=== PATIENT | female | born 2000 | race Caucasian/White ===

== ENCOUNTER 2020-06-06 13:24 | Inpatient (IN) | payer OTHER ==
[~2020-06-06] VITALS: Ht 157.5 cm; Wt 61.8 kg
[2020-06-06] MEDS ORDERED: HYDR-3363 PO (13:34)
[2020-06-06] MEDS ORDERED: ASEN5TA SL (13:34)
[2020-06-06] MEDS ORDERED: CLON1TAB17 PO (13:35)
[2020-06-06 14:11] LABS: HEMATOCRIT 39.4 % (36.0-47.0); HEMOGLOBIN 13.5 g/dl (12.0-15.5); MEAN CORPUSCULAR HEMOGLOBIN 31.8 pg (27.0-33.0); MEAN CORPUSCULAR HGB CONC 34.3 g/dl (32.0-36.5); MEAN CORPUSCULAR VOLUME 92.7 fl (80.0-96.0); PLATELET COUNT, AUTOMATED 343 10^3/uL (150-450); RED BLOOD COUNT 4.25 10^6/uL (4.00-5.40); WHITE BLOOD COUNT 7.4 10^3/uL (4.0-10.0)
[2020-06-06 14:30] LABS: AMPHETAMINES LEVEL URINE NEGATIVE (NEGATIVE); BARBITURATES URINE NEGATIVE (NEGATIVE); BENZODIAZEPINES URINE NEGATIVE (NEGATIVE); CANNABINOIDS URINE NEGATIVE (NEGATIVE); COCAINE METABOLITE URINE NEGATIVE (NEGATIVE); METHADONE URINE NEGATIVE (NEGATIVE); OPIATES URINE NEGATIVE (NEGATIVE); PHENCYCLIDINE URINE NEGATIVE (NEGATIVE)
[2020-06-06 14:35] LABS: HCG, SERUM QUALITATIVE NEGATIVE (NEGATIVE)
[2020-06-06 14:42] LABS: ACETAMINOPHEN LEVEL < 2.0 UG/ML (10.0-30.0); ALBUMIN 3.8 GM/DL (3.2-5.2); ALT/SGPT 35 U/L (12-78); BILIRUBIN,DIRECT 0.1 MG/DL (0.0-0.2); BILIRUBIN,TOTAL 0.3 MG/DL (0.2-1.0); BLOOD UREA NITROGEN 12 MG/DL (7-18); CALCIUM LEVEL 9.5 MG/DL (8.5-10.1); CARBON DIOXIDE LEVEL 27 MEQ/L (21-32); CHLORIDE LEVEL 105 MEQ/L (98-107); CREATININE FOR GFR 0.81 MG/DL (0.55-1.30); ETHYL ALCOHOL (ETHANOL) < 0.003 % (0.000-0.010); GLUCOSE, FASTING 98 MG/DL (70-100); POTASSIUM SERUM 3.8 MEQ/L (3.5-5.1); SALICYLATE LEVEL < 1.7 MG/DL (5.0-30.0); SODIUM LEVEL 137 MEQ/L (136-145); TOTAL PROTEIN 7.6 GM/DL (6.4-8.2)
[2020-06-06] MEDS ORDERED: ALPRAZolam 0.5 MG TAB PO ONE ×2 (17:45→21:45)
[2020-06-06] MEDS ORDERED: HYDR1CAP25 PO (18:47)
[2020-06-06] MEDS ORDERED: CLON1TAB8 PO (18:47)
[2020-06-06] MEDS ORDERED: JUNE1.5T PO (18:47)
[2020-06-06] MEDS ORDERED: MAALOX 30 ML SUSP *UDC PO PRN (19:00)
[2020-06-06] MEDS ORDERED: hydrOXYzine 25 MG TAB PO PRN (19:00)
[2020-06-06] MEDS ORDERED: traZODone 50 MG TAB PO PRN (19:00)
[2020-06-06] MEDS ORDERED: ACETAMINOPHEN TAB 650MG DOSE (2X325MG) PO PRN (19:00)
[2020-06-06] MEDS ORDERED: MOM 30ML SUSPENSION UDC PO PRN (19:00)
[2020-06-06] MEDS: clonazePAM 1 MG TAB PO SCH (21:00)
[2020-06-06] MEDS: OLANZapine ORAL DISINTEGRATING TAB 5MG PO PRN (22:43)
[2020-06-06 22:51] VITALS: BP 118/67
[2020-06-06] MEDS ORDERED: NICOTINE 21MG/24HR 1 EA TRANSDERMAL TD PRN (23:00)
[2020-06-07 06:14] VITALS: BP 114/63
[2020-06-07] MEDS: clonazePAM 1 MG TAB PO SCH ×2 (08:33→20:04)
[2020-06-07] MEDS ORDERED: INFLUENZA QUADRIVALENT PF VACCINE 0.5ML SYRINGE IM ONE (09:00)
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
[2020-06-07] MEDS ORDERED: hydrOXYzine 50 MG TAB PO PRN (11:45)
[2020-06-07] MEDS: OLANZapine ORAL DISINTEGRATING TAB 5MG PO PRN ×2 (12:49→18:18)
--- NOTE | 2020-06-07 13:40 | HPEPDOC ---
[facility] Medical History & Physical Date of Admission Jun 07, 2020 Date of Service: Jun 07, 2020 History and Physical Chief complaint: Presented to the hospital with suicidal ideation Hospital service was called for medical screening evaluation History of present illness: Patient is a 19-year-old female with a PMHx of Anxiety / Depression / Bipolar who presented to the ER with suicidal ideation. Patient was admitted to inpatient mental health unit under the care of psychiatry. Hospitalist service was called for medical screening evaluation. Currently, patient reports a mild headache. Denies any nausea, vomiting, chest pain, or change in her baseline shortness of breath. She does report a mild nonproductive cough. Denies any abdominal pain, burning with urination or diarrhea. Patient reports mild constipation. Patient denies any changes in her appetite, but does report some weight gain. Past Medical History: Anxiety / Depression / Bipolar Past Surgical History: Denies any prior surgeries Allergies: See below Medications: See below Family History: - Mother and father with a history of high blood pressure Social History: - Denies the use of illicit drugs; patient reports that she uses a Vape for the last 3 months; patient reports social alcohol use. Reports that she drinks a six pack of beer daily - Denies recent travel or sick contacts - Lives with - Occupation; reports that she works at a [employer] Review of Systems: 10 point review of systems complete, all negative otherwise stated in HPI Physical exam: - Vitals: BP [114/63], HR [65], RR [16], Sat [98%RA], Temp [96.8F] - General: Lying in bed, Speaking in full sentences, AAOx3 - HEENT: NC, AT, PERRLA - CVS: RRR, +S1S2 - Lungs: Fair air entry bilaterally, No appreciable wheezing / rales / rhonchi - Abdomen: Soft, Non-distended, Non-tender - Extremities: No lower extremity edema, No calf tenderness - Neuro: No focal motor or sensory deficit - Skin: No visible rashes Assessment and Plan: Suicidal ideation - Patients past medical history of anxiety, depression and bipolar disorder - Admitted to the inpatient mental health unit under the care of psychiatry - Currently being managed by psychiatry No significant past medical history DVT prophylaxis - Will continue with early ambulation Plan Checker was present throughout the duration of this history and physical examination Thank you for this consultation; hospitalist service will sign off. Please re- consult as needed Vital Signs Vital Signs Date Time Temp Pulse Resp B/P (MAP) Pulse Ox O2 Delivery O2 Flow Rate FiO2 06/07/20 06:14 98.8 65 16 114/63 (80) 06/06/20 22:51 98 Room Air Laboratory Data Labs 24H Laboratory Tests 2 06/06/20 13:49: Nucleated Red Blood Cells % (auto) 0.0, Anion Gap 5L, Calcium Level 9.5, Total Bilirubin 0.3, Direct Bilirubin 0.1, Aspartate Amino Transf (AST/SGOT) 25, Alanine Aminotransferase (ALT/SGPT) 35, Alkaline Phosphatase 88, Total Protein 7.6, Albumin 3.8, Albumin/Globulin Ratio 1.0L, Thyroid Stimulating Hormone (TSH) 1.360, Human Chorionic Gonadotropin, Qual NEGATIVE, Salicylates Level < 1.7L, Urine Opiates Screen NEGATIVE, Urine Methadone Screen NEGATIVE, Acetaminophen Level < 2.0L, Urine Barbiturates Screen NEGATIVE, Urine Phencyclidine Screen NEGATIVE, Urine Amphetamines Screen NEGATIVE, Urine Benzodiazepines Screen NEGATIVE, Urine Cocaine Metabolite Screen NEGATIVE, Urine Cannabinoids Screen NEGATIVE, Ethyl Alcohol Level < 0.003 CBC/BMP Laboratory Tests 06/06/20 13:49 Home Medications Scheduled Asenapine (Saphris) 5 Mg Tab.subl, 5 MG SL QHS Clonazepam (Clonazepam) 1 Mg Tablet, 1 MG PO BID Hydroxyzine Pamoate (Hydroxyzine Pamoate) 25 Mg Capsule, 25 MG PO QHS Norethindrone-E.estradiol-Iron (Junel Fe 1.5 mg-30 Mcg Tablet) 1 Each Tablet, 1 TAB PO DAILY Allergies Coded Allergies: No Known Allergies (Unverified , 06/06/20) HA HORTON MD Jun 07, 2020 13:39
[2020-06-07 16:00] VITALS: BP 119/74
[2020-06-07] MEDS ORDERED: ARIPiprazole 2 MG TAB PO SCH (21:00)
[2020-06-08 06:58] VITALS: BP 98/56
[2020-06-08] MEDS: clonazePAM 1 MG TAB PO SCH (08:08)
--- NOTE | 2020-06-08 09:30 | MHDSPDOC ---
[facility] Discharge Summary Discharge Summary DATE OF ADMISSION: Jun 06, 2020 at 18:49 DATE OF DISCHARGE: Jun 08, 2020 at 11:44 DISCHARGE DIAGNOSES: F31.9 Bipolar disorder, unspecified F10.10 Alcohol abuse, uncomplicated CONSULTANTS INVOLVED:[ None (basic hospitalist screening)] REASON FOR ADMISSION & TREATMENT AND PROGRESS ON THE UNIT : Patient, female, was admitted to inpatient health unit after she reportedly had suicidal thoughts. She had these thoughts after various stressors of moving to local area from [place] with her . Patient reportedly had difficulty finding a provider and had vague symptoms of depression. When she presented, her suicidality rapidly vanished. MEDICATIONS: She was interested in having her Klonopin changed to Xanax. This was declined because it was not appropriate especially given her drinking. Patient was changed from Saphris to Abilify because Saphris is not available in the pharmacy. She was open to trying a new medication because Saphris did not help her. She tolerated medication well and became generally euthymic at 48 hours. She did not meet involuntary criteria for further extension and was sent home. Discussed with patient at length about the use of alcohol and Klonopin is dangerous. She acknowledged this but was not interested in tapering it off. DISCHARGE ASSESSMENT[improved] Legal status considerations: The patient at the time of discharge did not meet criteria for involuntary admission/extension due to having a [normal] mental status exam, [fair] insight into the situation, They are engaged in the discharge process, as well as being friendly and amenable in behavioral control and havent been engaging in any observed concerning behavior or ideation recently. They decline voluntary extension/admission at this time and must be discharged in [place], as Im unable to make a case for holding the patient against their will. They may have historical risk factors of admissions and other interactions with psychiatry however, those are not modifiable from a clinical perspective. The patient will need to be discharged in [place]. MENTAL STATUS EXAMINATION ON DISCHARGE: [General: Well dressed with good hygiene Speech: Spontaneous and fluid Thought processes: Linear and logical Thought content: Future orientated Abstract reasoning, and computation: Intact Description of associations: Intact Description of abnormal or psychotic thoughts:Denies any suicidal or homicidal ideation. Denies any auditory or visual hallucinations. Does not appear to be responding to internal stimuli. Does not appear to be endorsing any bizarre or paranoid ideation. Judgment: fair Insight: fair Orientation: Alert and orientated 3 Recent and remote memory: Intact Attention span and concentration: Intact Fund of knowledge: Adequate Mood: "okay" Affect: Euthymic with a full range] PLAN/FOLLOWUP ARRANGEMENTS: Follow up appointments made (PCP and MH in 5 days of D/C date) and safety plan completed. Safety Planning aspects completed prior to discharge [Medication supplies limited to 7 days with 4 refills to prevent accumulation to OD] [Family contact completed, educated on safe practices, instructed on removal and mitigation of dangerous means] [RN reviewed crisis hotline information and other aspects to empower patient to access care in interim before next appointment.] The amount of time spent in the coordination of care for this patient was approximately 30 minutes. Vital Signs/I&Os Vital Signs Date Time Temp Pulse Resp B/P (MAP) Pulse Ox O2 Delivery O2 Flow Rate FiO2 06/08/20 06:58 98.2 75 15 98/56 (70) 98 Room Air Medications Scheduled Aripiprazole (Abilify) 5 Mg Tablet, 5 MG PO QHS for mood for 7 Days, #7 Clonazepam (Clonazepam) 1 Mg Tablet, 1 MG PO BID, (Reported) Hydroxyzine Pamoate (Hydroxyzine Pamoate) 25 Mg Capsule, 25 MG PO QHS, (Reported) Norethindrone-E.estradiol-Iron (Junel Fe 1.5 mg-30 Mcg Tablet) 1 Each Tablet, 1 TAB PO DAILY, (Reported) Allergies Coded Allergies: No Known Allergies (Unverified , 06/06/20) MARY MILLER DO Jun 08, 2020 09:30
[2020-06-08] MEDS ORDERED: ABIL1TAB11 PO (10:06)
== END 2020-06-08 11:44 | disposition home or self-care (01) | DRG 885 ==
LOC: M ED 13:24 → M ED INP 18:49 → M PSY 21:54
PROVIDERS: ADMIT Psychiatry & Neurology Psychiatry; ATTEND Psychiatry & Neurology Addiction Medicine
DX: F31.9 Bipolar disorder, unspecified (principal); F41.9 Anxiety disorder, unspecified; F10.10 Alcohol abuse, uncomplicated; F17.290 Nicotine dependence, other tobacco product, uncomplicated; Z81.8 Family history of other mental and behavioral disorders; Z79.899 Other long term (current) drug therapy

== ENCOUNTER 2021-02-12 14:30 | Outpatient (CLI) | payer OTHER ==
[~2021-02-12] VITALS: Ht 157.5 cm; Wt 65.4 kg
[~2021-02-12 14:30] MED LIST: ABIL1TAB11 PO; ASEN5TA SL; CLON1TAB17 PO; CLON1TAB8 PO; HYDR-3363 PO; HYDR1CAP25 PO; JUNE1.5T PO
[2021-02-12 14:39] VITALS: BP 110/71
[2021-02-12] MEDS ORDERED: ACET-907 PO (14:49)
[2021-02-12] MEDS ORDERED: MULTTAB20 PO (14:49)
[2021-02-12] MEDS ORDERED: BIOT5TAB3 PO (14:50)
[2021-02-12] MEDS ORDERED: UNIS25TA3 PO (14:50)
[2021-02-12] MEDS ORDERED: diphenhydrAMINE 25MG CAP PO ONE (15:00)
[2021-02-12 15:46] VITALS: BP 88/50
[2021-02-12 15:47] VITALS: BP 99/61
--- NOTE | 2021-02-12 16:03 | IPNPDOC ---
Obstetrical Progress Note Date of Service February 12, 2021 Subjective 20 yo at 28w1d with OSITO of 06 MAY 2021 presents to L&D with complaints of lightheadedness and dizziness. She reports that she felt that she passed out and was able to slide down to the floor. She reports that she hydrates well and during dietary recall, she has a high carbohydrate diet with no protein. She also reports that she has a headache since 1200 today and she took tylenol 1000 mg with no relief. She denies vaginal bleeding, leaking of fluid, contractions, and reports positive movement. Objective Vital Signs Date Time Temp Pulse Resp B/P (MAP) Pulse Ox O2 Delivery O2 Flow Rate FiO2 02/12/21 14:39 98.1 78 16 110/71 (84) Assessment Near syncope Headache Assessment Heart Rate (FHR): 135 Variability: Moderate Accelerations: Present Decelerations: None Tocometer Contractions: No Assessment and Plan Age: 20 : 1 Term: 0 Pre-term: 0 Abortions: 0 Livin EGA at Admission: 28 (+1) Weeks & Days 28w1d Status: Reassuring Additional Comments Discharge to home, certified not in labor Recommended to eat small portions every 2-3 hours with foods higher in protein Recommended to hydrate with 3-4 liters of water per day Recommended to keep all future appointments with [employer] SAL[employer] REPRESENTATIVE FKC and PTL precautions discussed Recommended to return to L&D if symptoms worsen or persist 20 minutes of face to face time spent with the patient for assessment and to discuss plan of care AURORA HUMPHREY CNM February 12, 2021 15:06
== END 2021-02-12 16:05 | disposition home or self-care (01) ==
LOC: M LDO 14:30
PROVIDERS: ATTEND Registered Nurse Maternal Newborn
DX: O26.893 Other specified pregnancy related conditions, third trimester (principal); R42 Dizziness and giddiness; R55 Syncope and collapse; Z3A.28 28 weeks gestation of pregnancy
CPT/HCPCS: G0378; G0463

== ENCOUNTER 2021-02-19 19:46 | Outpatient (CLI) | payer OTHER ==
[~2021-02-19] VITALS: Ht 157.5 cm; Wt 65.0 kg
[~2021-02-19 19:46] MED LIST changes: +ACET-907 PO; +BIOT5TAB3 PO; +MULTTAB20 PO; +UNIS25TA3 PO
[2021-02-19 20:11] VITALS: BP 107/63
[2021-02-19 21:16] VITALS: BP 122/75
--- NOTE | 2021-02-19 21:48 | IPNPDOC ---
Text Note Date of Service The patient was seen on 02/19/21. NOTE 20 yo at 29+1 weeks gestation presented to L&D with the complaint of cramping on and off abdominal and lower pelvic pain since about 1530 this afternoon. She denies any vaginal bleeding or leakage of fluid. She denies any dysuria, fevers/chills, or vomiting. She endorses feeling lots of movement. Chaperoned by L&D RN Vitals - VSS, afebrile, normotensive, non tachycardic General - Sitting up in bed, AAOX3, NAD Abdomen - Gravid uterus appropriate size for gestational age. No fundal tenderness. Cervix - Cl/thick/high to digital exam. Unchanged exam >1 hour later. Extremities - No edema FHR tracing - Cat I and appropriate for gestational age throughout stay. +accels, no decels. Sporadic contractions ultimately resolved on toco. Bedside TVUS - cervical length 3.2cm with no funneling or dynamic changes with valsalva. UA - clean catch, 1.005 SG, +1 ketones, +1 bacteria, all else negative Cervix closed and unchanged after serial exams. Ctx all but resolved on toco. Cervical length >3cm and reassuring on TVUS. Note made of +1 bacteria on UA. Script written for Macrobid for presumed UTI. Will follow up on culture results when they return. Patient given first dose of macrobid in triage and remainder of course ordered at [facility] to be picked up. I offered Stephanie overnight observation in the hospital if it would be make her more comfortable. However, Stephanie desired to return home. Patient to return to care for worsening pain, fevers/chills, bleeding, leakage of fluid, or any other urgent concerns. All questions answered. 60 minutes of patient care DO SAMMY Torres,Jovanni, I+O VS, Jovanni, I+O Vital Signs Date Time Temp Pulse Resp B/P (MAP) Pulse Ox O2 Delivery O2 Flow Rate FiO2 02/19/21 20:11 98.4 86 16 107/63 (78) YADIEL VINSON DO February 19, 2021 21:48
[2021-02-19] MEDS ORDERED: NITROFURANTOIN (MACROBID) 100 MG CAP PO ONE (22:25)
== END 2021-02-19 22:40 | disposition home or self-care (01) ==
LOC: M LDO 19:46
PROVIDERS: ATTEND Obstetrics & Gynecology
DX: O23.43 Unspecified infection of urinary tract in pregnancy, third trimester (principal); O26.893 Other specified pregnancy related conditions, third trimester; Z3A.29 29 weeks gestation of pregnancy; R25.2 Cramp and spasm
CPT/HCPCS: 76815; 81001; G0378; G0463

== ENCOUNTER 2021-04-16 18:31 | Outpatient (CLI) | payer OTHER ==
[~2021-04-16] VITALS: Ht 157.5 cm; Wt 68.1 kg
[2021-04-16 18:47] VITALS: BP 123/72
[2021-04-16 20:40] VITALS: BP 121/63
--- NOTE | 2021-04-16 20:48 | IPNPDOC ---
Text Note Date of Service The patient was seen on 04/16/21. NOTE 20 yo at 37+1 weeks gestation presented to L&D with the complaint of regular, painful contractions. She denies any vaginal bleeding or leakage of fluid. She endorses movement. Chaperoned by L&D RN Vitals - VSS, afebrile, normotensive General - AAOX3, sitting up in bed, NAD Abdomen - Gravid uterus appropriate size for gestational age. No fundal tenderness Cervix - 1/50/-3, posterior. Exam unchanged on repeat >1hr after first exam. FHR tracing - Cat I with moderate variability, +accels, no decels. Ctx noted on toco. Cervix unchanged at 1/50/-3 to serial exams. Likely not in active labor. Reassuring status. Offered pain medication but patient declined. She asked about something to help her sleep and I suggested benadryl. She has some at home. Return to care for bleeding, worsening contractions, leakage of fluid, or decreased movement. All questions answered. 45 minutes of patient care DO SAMMY Torres Fishbone, I+O VS, Jovanni, I+O Vital Signs Date Time Temp Pulse Resp B/P (MAP) Pulse Ox O2 Delivery O2 Flow Rate FiO2 04/16/21 20:39 97.7 04/16/21 18:47 117 123/72 (89) 04/16/21 18:46 18 YADIEL VINSON DO Apr 16, 2021 20:48
== END 2021-04-16 20:44 | disposition home or self-care (01) ==
LOC: M LDO 18:31
PROVIDERS: ATTEND Obstetrics & Gynecology
DX: O47.1 False labor at or after 37 completed weeks of gestation (principal); Z3A.37 37 weeks gestation of pregnancy; Z91.040 Latex allergy status; Z79.899 Other long term (current) drug therapy
CPT/HCPCS: 59025; 81001; G0378; G0463

== ENCOUNTER 2021-05-07 05:25 | Outpatient (CLI) | payer OTHER ==
[~2021-05-07] VITALS: Ht 157.5 cm; Wt 71.9 kg
[2021-05-07 05:40] VITALS: BP 127/78
[2021-05-07] MEDS ORDERED: hydrOXYzine 50 MG TAB PO STA (10:21)
--- NOTE | 2021-05-07 10:23 | IPNPDOC ---
Obstetrical Progress Note Date of Service May 07, 2021 Subjective 20 yo at 40w1d with OSITO of 06 MAY 2021 presents to L&D with complaints of contractions that have gotten progressively worse through the night since 0100 this morning. She reports that she was having contractions starting yesterday at 0800. She reports that she lost her mucous plug in large amounts. She denies leaking of fluid, vaginal bleeding, and reports positive movement. Objective Vital Signs Date Time Temp Pulse Resp B/P (MAP) Pulse Ox O2 Delivery O2 Flow Rate FiO2 05/07/21 05:40 98.4 88 18 127/78 (94) Cervical exam is unchanged from her previous exam after 2 hours. Assessment Heart Rate (FHR): 145 Variability: Moderate Accelerations: Present Decelerations: None Tocometer Contractions: Yes Frequency: irregular Sterile Vaginal Examination Dilation: 1cm (1-2 cm) Effacement (%): 50% Station: -2 Cervical Consistency: Medium Cervical Position: Posterior Postion/Presentation: Cephalic presentation Assessment and Plan Age: 20 : 1 Term: 0 Pre-term: 0 Abortions: 0 Livin Weeks & Days 40w1d Status: Reassuring Group B Streptococcus: Negative Additional Comments Assessment: IUP at 40w1d Threatened labor at term Plan: Discharge to home, certified not in labor Recommended to hydrate well with 3-4 liters of water per day IOL discussed and scheduled on 13 MAY 2021 Labor precautions and FKC discussed Keep all appointments with [facility] CERTIFIED OPHTHALMIC TECHNICIAN Return to L&D if symptoms worsen or persist. AURORA HUMPHREY CNM May 07, 2021 08:21
== END 2021-05-07 10:43 | disposition home or self-care (01) ==
LOC: M LDO 05:25
PROVIDERS: ATTEND Obstetrics & Gynecology
DX: O47.1 False labor at or after 37 completed weeks of gestation (principal); Z3A.41 41 weeks gestation of pregnancy
CPT/HCPCS: 59025; G0378; G0463

== ENCOUNTER 2021-05-09 19:14 | Outpatient (CLI) | payer OTHER ==
[~2021-05-09] VITALS: Ht 157.5 cm; Wt 70.4 kg
--- NOTE | 2021-05-09 22:12 | HPE ---
HISTORY AND PHYSICAL DATE OF ADMISSION: 05/09/2021 HISTORY OF PRESENT ILLNESS: This lady is a 20-year-old 1, para 0, EDC by ultrasound at 10 weeks and 5 days is May 06, 2021. She is at 40 and 3/7 weeks of gestation. Today when she saw her practitioner, she had membranes sweeping. She calls because she thinks her membranes ruptured and she is having contractions. MEDICAL HISTORY/RISK FACTORS: She has anxiety, depression, she is bipolar and she sees behavioral health. She has chronic anemia and uses an asthma inhaler on a p.r.n. basis. PHYSICAL EXAMINATION: Today she does not appear in any acute distress. Symphysis fundus height is 40. Vertex presenting. Category 1 strip on the NST, moderate variability, no decelerations. She does have contractions, but they are intermittently spaced. STERILE SPECULUM EXAMINATION: Cervix is posterior 1 cm. Nitrazine is negative. No ferning. No BV. No yeast. No trichomonas. Digital examination reveals 1 cm, posterior, vertex -3 station. Head is well applied to the cervix. Ultrasound limited abdominally after consenting; vertex presenting, QUINN in three quadrants total of 8.86. limb movements were noted, cardiac activity, spontaneous respirations. Deepest pockets vertical were 3.96. IN SUMMARY: We have a 40 and 3/7 weeks of gestation with uterine irritability secondary to membrane sweeping category 1 strip. Patient has an appointment on Friday for induction of labor at 41 weeks. Patient was discharged undelivered, expressed understanding of the plan of care.
== END 2021-05-09 20:10 | disposition home or self-care (01) ==
LOC: M LDO 19:14
PROVIDERS: ATTEND Obstetrics & Gynecology
DX: O26.893 Other specified pregnancy related conditions, third trimester (principal); N89.8 Other specified noninflammatory disorders of vagina; Z3A.40 40 weeks gestation of pregnancy; O99.343 Other mental disorders complicating pregnancy, third trimester; F41.9 Anxiety disorder, unspecified; F31.9 Bipolar disorder, unspecified; O99.513 Diseases of the respiratory system complicating pregnancy, third trimester; J45.909 Unspecified asthma, uncomplicated; O99.013 Anemia complicating pregnancy, third trimester; D64.9 Anemia, unspecified
CPT/HCPCS: 59025; G0378; G0463

== ENCOUNTER 2021-05-13 08:40 | Outpatient (CLI) | payer OTHER ==
[~2021-05-13] VITALS: Ht 157.5 cm; Wt 70.5 kg
[2021-05-13 08:57] VITALS: BP 125/81
--- NOTE | 2021-05-13 11:45 | IPNPDOC ---
Text Note Date of Service The patient was seen on 05/13/21. NOTE 20 yo at 41+0 weeks gestation presented to L&D with the complaint of contractions. She denies any vaginal bleeding or leakage of fluid. She endorses movement. Chaperoned by RN Vitals - VSS, afebrile, normotensive, non tachycardic General - AAOX3, sitting up in bed, NAD Abdomen - Gravid uterus, no fundal tenderness Cervix - 1-2/50/-3 FHR tracing - Cat I with baseline 125 bpm, moderate variability, numerous accels, no decels. Rare ctx on toco. Bedside TAUS ( anatomy not assessed): Viable SIUP in cephalic presentation. +FCA measured at 125 bpm. Anterior placenta. QUINN 8.6 cm. Incidental 04/29 BPP. Patient not in active labor. She is on the books for IOL today, however multiple higher priority medically indicated inductions are ahead of her on the list from yesterday and the day prior. status is reassuring with a 10/10 BPP. Discharged home with return precautions. She understands she will be contacted when a bed becomes available for her IOL. She also understands to return to care should she experience bleeding, LOF, worsening contractions, or decreased movement. She will follow up tomorrow for another NST if she is not called in for her induction. All patient and questions answered. 40 minutes Musa Melo DO, LINDSEY VS,Jovanni, I+O VS, Fishbone, I+O Vital Signs Date Time Temp Pulse Resp B/P (MAP) Pulse Ox O2 Delivery O2 Flow Rate FiO2 05/13/21 08:57 106 125/81 (96) MUSA MELO DO May 13, 2021 11:45
[2021-05-13] MEDS ORDERED: IRON1TAB2 PO (22:22)
[2021-05-13] MEDS ORDERED: VITA100T59 PO (22:22)
== END 2021-05-13 10:50 | disposition home or self-care (01) ==
LOC: M LDO 08:40
PROVIDERS: ATTEND Obstetrics & Gynecology
DX: O47.1 False labor at or after 37 completed weeks of gestation (principal); Z3A.41 41 weeks gestation of pregnancy; O48.0 Post-term pregnancy; Z91.040 Latex allergy status
CPT/HCPCS: 59025; G0378; G0463

== ENCOUNTER 2021-05-13 22:09 | Inpatient (IN) | payer OTHER ==
[~2021-05-13] VITALS: Ht 157.5 cm; Wt 70.9 kg
[2021-05-13] MEDS ORDERED: VITA100T59 PO (22:22)
[2021-05-13] MEDS ORDERED: IRON1TAB2 PO (22:22)
[2021-05-13] MEDS ORDERED: HOME MED LIST COMPLETE! XX SCH (22:25)
[2021-05-13] MEDS ORDERED: OXYTOCIN DRIP 30 UNITS in IV 1 EA IV PRN (22:40)
[2021-05-13] MEDS ORDERED: LIDOCAINE 1% MDV 20ML VIAL INFIL PRN (22:40)
[2021-05-13 23:00] LABS: HEMATOCRIT 34.9 % (36.0-47.0); HEMOGLOBIN 12.1 g/dl (12.0-15.5); MEAN CORPUSCULAR HEMOGLOBIN 31.3 pg (27.0-33.0); MEAN CORPUSCULAR HGB CONC 34.7 g/dl (32.0-36.5); MEAN CORPUSCULAR VOLUME 90.4 fl (80.0-96.0); PLATELET COUNT, AUTOMATED 170 10^3/uL (150-450); RED BLOOD COUNT 3.86 10^6/uL (4.00-5.40); WHITE BLOOD COUNT 12.5 10^3/uL (4.0-10.0)
--- NOTE | 2021-05-13 23:23 | HPEPDOC ---
Obstetrical History & Physical General Date of Admission May 13, 2021 at 22:09 History of Present Illness 20 yo at 41+0 weeks gestation by LMP of 30Jul2021 c/w 10+5 week US presents to L&D for IOL for late term . Stephanie reports intermittent contractions but otherwise feels well. She denies any vaginal bleeding or leakage of fluid. She endorses movement. Chief Complaint: Induction of labor Information Provided By: Patient Age: 20 : 1 Term: 0 Pre-term: 0 Abortions: 0 Livin Care Care: Good Care Dating Final EDC: May 06, 2021 Final EDC for Daily Update: May 06, 2021 Final EDC by: LMP (LMP of 30Jul2021 c/w 10+5 week US set OSITO of [id number]) LMP: Jul 30, 2020 Antepartum Course Diagnos(e)s Asthma Anxiety/depression, bipolar disorder Mild anemia Past Medical History Past Obstetrical History : Past Obstetrical History: Primgravida [employer] History: No pertinent history Past Medical History Medical History Anxiety/Depression, bipolar disorder Asthma Surgical History: Robbins teeth Family History Significant Family History: No pertinent family hx Social History Marital Status: Family situation: Spouse/partner home Psychosocial History: Anxiety, Bipolar, Depression * Smoker: non-smoker Alcohol: Denies Drugs: denies Imunizations Tdap status: current Influenza Status: needs Allergies Coded Allergies: TAPE (Verified Allergy, Mild, rash, 04/16/21) Medications Scheduled Ascorbic Acid (Vitamin C) 100 Mg Tablet, 1 TAB PO DAILY Doxylamine Succinate (Unisom Sleep Aid) 25 Mg Tablet, 1 TAB PO QPM Ferrous Sulfate (Iron) 325 Mg Tablet, 1 TAB PO DAILY No122/Iron/Folic Acid ( Multi Tablet) 1 Each Tablet, 1 TAB PO DAILY Physical Examination Physical Examination Chaperoned by RN GENERAL: Alert and oriented times three. ABDOMEN: Gravid and non-tender to touch. FETUS: Is vertex (VTX) by sterile vaginal examination (SVE) EXTREMITIES: No edema. PELVIC: Cervix 1/60/-3. Kellogg bulb placed through the cervix with 60ml saline intrauterine. Patient tolerated well. Laboratory Data 24H LABS Laboratory Tests 2 05/13/21 22:21: Serology Scanned Report Hepatitis B Testing 05/13/21 22:51: Nucleated Red Blood Cells % (auto) 0.0 CBC/BMP Laboratory Tests 05/13/21 22:51 Urine Culture: No Growth Pertinent Laboratoy Data Blood Type: O+ RBC Antibody Screen: Negative HIV: Negative Hepatitis B: Negative Hepatitis C: Unknown Rapid Plasma Reagin: Nonreactive Rubella: Immune Varicella: Unknown (Equivacol) Chlamydia/Gonorrhea: Negative Group B Streptococcus: Negative Quad Screen Test: Unknown Cystic Fibrosis: Negative Glucose Tolerance Test: 117 Anatomy Ultrasound Placenta Location: Anterior Normal Anatomy: Yes Placenta Previa: No Steroid Therapy Steroid Therapy: No Vaginal Examination Dilation: 1cm Effacement: 60% Station: -2 Cervical Consistency: Medium Cervical Position: Middle Presentation: Cephalic presentation Position: Vertex (occiput) Assessment Heart Rate (FHR): 120 Variability: Moderate Accelerations: Positive Decelerations: None Tocometer Contractions: Yes Frequency: irregular Assessment/Plan Assessment 20 yo at 41+0 weeks gestation presents for IOL for late term . Plan Admit for IOL. Apply IV fluids. Labs per L&D protocol. GBS negative. Kellogg bulb placed for cervical ripening. Ctx regular on toco. Regular diet. Candidate for IV analgesia in latent labor and epidural when in active labor. Anticipate . Labor and Delivery Counseling Vaginal / Operative vaginal delivery / C section counseling We will deliver your baby through the vagina with possible assistance of forceps or vacuum device if needed for maternal or indications. Forceps and vacuum are devices that can assist with vaginal delivery when normal pushing efforts cannot achieve delivery on their own or when delivery is needed in an emergency for baby's well-being. Medications may be required to induce or augment (help) your labor in order to achieve a vaginal delivery. An episiotomy may be required to help your baby to delivery vaginally. You may also require repair of any lacerations or tears of your vagina or vulva that are caused by delivery. In kristian e cases, emergencies can occur that require an emergency section delivery so quickly that there may not be enough time to stop and complete consent forms for section. Understand that if this occurs, your providers will discuss the need for a section with you before they pr oceed with surgery. section is the delivery of your baby through an incision in your abdomen. In some situations, section may be safer to mom and baby than continuing labor and is only performed when clinically indicated. Risks of vaginal delivery include but are not limited to: Bleeding, infection, injury to the vagina, pelvic structures, injury to baby, damage to the uterus, reactions to anesthesia, uterine rupture, risk of hysterectomy for life thr eatening bleeding, or . Medications used to induce or augment labor may increase your risk for infection, uterine tachysystole, uterine rupture, heart rate abnormalities, need for emergency delivery or possible hysterectomy, and hemorrhage. Additional risks for use of forceps and vacuum include: increased risk of perineal and vaginal lacerations, risk of urinary or bowel incontinence, increased risk of injury to baby with bruising, scratches, hematomas on the head, or intracranial bleeding. Ms. Gomez appears to understand these risks and elects to proceed with IOL today. She also consents to a blood transfusion if necessary. All patient and questions answered. Musa Melo DO, MUSA BOWEN DO May 13, 2021 23:23
[2021-05-13] MEDS: PROMETHAZINE INJ 25 MG/ML VIAL (J2550) IV PRN (23:35)
[2021-05-13] MEDS: BUTORPHANOL 2 MG/ML INJ (J0595) IV PRN (23:35)
[2021-05-14] VITALS (54 sets, daily range): BP systolic 90–166; BP diastolic 51–121
[2021-05-14] MEDS: BUTORPHANOL 2 MG/ML INJ (J0595) IV PRN ×3 (00:20→12:17)
[2021-05-14] MEDS ORDERED: OXYTOCIN DRIP 30 UNITS in IV 1 EA IV SCH ×2 (06:50→23:35)
--- NOTE | 2021-05-14 07:04 | IPNPDOC ---
Text Note Date of Service The patient was seen on 05/14/21. NOTE Kellogg bulb remains in place. Stephanie has received two doses of stadol. Cont ractions have spaced. Pitocin ordered. Periods of minimal variability on FHR tracing likely secondary to stadol. There are +accels and tracing is overall reassuring. Continue current management. Kameron VS,Jovanni, I+O VS, Chintane, I+O Laboratory Tests 05/13/21 22:51 Vital Signs Date Time Temp Pulse Resp B/P (MAP) Pulse Ox O2 Delivery O2 Flow Rate FiO2 05/14/21 04:02 18 05/14/21 03:37 83 101/55 (70) YADIEL VINSON DO May 14, 2021 07:04
--- NOTE | 2021-05-14 08:49 | IPNPDOC ---
Obstetrical Progress Note Date of Service May 14, 2021 Subjective Reporting irregular cramping. Spouse at bedside. Denies any LOF or bleeding. Does plan to eventually get an epidural, but wants to wait until about 6cm dilated. Reporting no need for IV pain medication at this time. Objective Vital Signs Date Time Temp Pulse Resp B/P (MAP) Pulse Ox O2 Delivery O2 Flow Rate FiO2 05/14/21 04:02 18 05/14/21 03:37 83 101/55 (70) Assessment Heart Rate (FHR): 135 Variability: Moderate Accelerations: Positive Decelerations: None Heart Rate Tracing: Category I Tocometer Contractions: Yes Frequency: irregular Assessment and Plan Additional Comments A/P 20yo G 1 P 0 at 41+1 wks gestation admitted for IOL due to pending postdates. O positive/GBS negative/RI, Varicella Equivocal VSS FHR Cat 1 tracing, reassuring Intact membranes. Plan to ROM when more actively michael Address pain needs as they arise. Desires epidural eventually. Plan SVE when patient next requests pain medications. Slight tug on euceda bulb and bulb came out without difficulty at 0835. Continue IOL process with pitocin, titrate per protocol. Anticipate Consult physician service as needed MATTHEW BARROW CNM May 14, 2021 08:49
[2021-05-14] MEDS: LR 1,000 ML IV SCH ×2 (10:28→18:00)
[2021-05-14] MEDS: PROMETHAZINE INJ 25 MG/ML VIAL (J2550) IV PRN (12:15)
--- NOTE | 2021-05-14 14:37 | IPNPDOC ---
Obstetrical Progress Note Date of Service May 14, 2021 Subjective Sleepy due to recent Stadol which is helping for pain. Objective Vital Signs Date Time Temp Pulse Resp B/P (MAP) Pulse Ox O2 Delivery O2 Flow Rate FiO2 05/14/21 14:04 83 18 99/54 (69) 05/14/21 13:09 98.4 05/14/21 12:27 Room Air Assessment Heart Rate (FHR): 125 Variability: Moderate Accelerations: Present Decelerations: None Heart Rate Tracing: Category I Tocometer Contractions: Yes Frequency: every 2-5 min. Assessment and Plan Additional Comments 20yo G 1 P 0 at 41+1 wks gestation admitted for IOL due to pending postdates. O positive/GBS negative/RI, Varicella Equivocal VSS FHR Cat 1 tracing, reassuring Comfortable with stadol at this time. Desires epidural eventually. Plan SVE when patient desires and epidural and AROM if able. Continue IOL with pitocin, titrate per protocol. Anticipate Consult physician service as needed MATTHEW BARROW CNM May 14, 2021 14:37
[2021-05-14] MEDS ORDERED: LR 1,000 ML IV ONE (15:25)
--- NOTE | 2021-05-14 15:28 | IPNPDOC ---
Obstetrical Progress Note Date of Service May 14, 2021 Subjective Now more awake from Stadol. Coping well with contractions. Objective Vital Signs Date Time Temp Pulse Resp B/P (MAP) Pulse Ox O2 Delivery O2 Flow Rate FiO2 05/14/21 14:04 83 18 99/54 (69) 05/14/21 13:09 98.4 05/14/21 12:27 Room Air Assessment Heart Rate (FHR): 120 Variability: Moderate Accelerations: Present Decelerations: None Heart Rate Tracing: Category I Tocometer Contractions: Yes Frequency: regular, every 1-3 min. Sterile Vaginal Examination Dilation: 5 cm Effacement (%): 80% Station: -2 Cervical Consistency: Soft Cervical Position: Middle Postion/Presentation: Cephalic presentation Assessment and Plan Additional Comments 20yo G 1 P 0 at 41+1 wks gestation admitted for IOL due to pending postdates. O positive/GBS negative/RI, Varicella Equivocal VSS FHR Cat 1 tracing, reassuring SVE: 5-6/80/-2, mid/soft. AROM at 1416, clear fluid. Desires epidural, plan LR 1000ml bolus now. Continue IOL with pitocin, titrate per protocol. Anticipate Consult physician service as needed MATTHEW BARROW CNM May 14, 2021 15:28
[2021-05-14] MEDS ORDERED: FENTANYL 2MCG/ML ROPIVACAINE 0.2% IN 0.9% NACL 100ML IVBAG As Ordered ONE (16:13)
--- NOTE | 2021-05-14 17:00 | IPNPDOC ---
Obstetrical Progress Note Date of Service May 14, 2021 Objective Vital Signs Date Time Temp Pulse Resp B/P (MAP) Pulse Ox O2 Delivery O2 Flow Rate FiO2 05/14/21 14:04 83 18 99/54 (69) 05/14/21 13:09 98.4 05/14/21 12:27 Room Air Assessment and Plan Additional Comments Patient has epidural now and pain is improving. She was called active labor at 1416 at 6/80/-2. SVE at this time was 6/90/-1. IUPC placed. Will continue to titrate pitocin and reassess in 2h or sooner if clinically indicated. CAT CHANTAL WILEY DO May 14, 2021 17:00
[2021-05-14] MEDS ORDERED: REFRIGERATOR IV KEYS XX PRN (17:15)
[2021-05-14] MEDS ORDERED: diphenhydrAMINE 50MG/ML VIAL (J1200) IV PRN (17:15)
[2021-05-14] MEDS ORDERED: ONDANSETRON 4MG/2ML VIAL IV PRN (17:15)
[2021-05-14] MEDS ORDERED: NALOXONE INJ 0.4MG/1ML VIAL (J2310 PER 1MG) IV PRN (17:15)
[2021-05-14] MEDS ORDERED: LACTATED RINGER'S 1000 ML IV PRN (17:15)
[2021-05-14] MEDS ORDERED: EPIDURAL COMMENT XX SCH (17:15)
[2021-05-14] MEDS ORDERED: ePHEDrine SULFATE 25 MG/5 ML(5MG/ML) SYRINGE IV PRN (17:15)
[2021-05-14] MEDS ORDERED: FENTANYL/ROPIVACAINE/NACL BAG 100 ML EPIDURAL SCH (17:15)
[2021-05-14] MEDS ORDERED: EPIDURAL/PCA KEYS XX PRN (17:15)
[2021-05-14 21:37] LABS: CORD GAS ABE V -3.4; CORD GAS HCO3 V 22.3 MEQ/L; CORD GAS O2 SAT V 85.6 %; CORD GAS PCO2 V 42.2 mmHg; CORD GAS PH V 7.34 UNITS; CORD GAS PO2 V 42.9 mmHg; CORD GAS SBC V 21.4 MEQ/L; CORD GAS TCO2 V 23.6 MEQ/L
[2021-05-14 21:38] LABS: CORD GAS ABE A -7.1; CORD GAS O2 SAT A 99.7 %; CORD GAS PCO2 A 31.3 mmHg; CORD GAS PH A 7.352 UNITS; CORD GAS PO2 A 190.1 mmHg; CORD GAS SBC A 18.9 MEQ/L; CORD GAS TCO2 A 17.9 MEQ/L
[2021-05-14] MEDS ORDERED: IBUPROFEN 600MG TAB PO PRN (23:35)
[2021-05-14] MEDS ORDERED: DOCUSATE SODIUM 100MG CAPSULE PO PRN (23:35)
[2021-05-14] MEDS ORDERED: ACETAMINOPHEN TAB 650MG DOSE (2X325MG) PO PRN (23:35)
[2021-05-14] MEDS ORDERED: ACETAMINOPHEN 500 MG TAB PO PRN (23:35)
--- NOTE | 2021-05-14 23:42 | DNPDOC ---
[facility] Delivery Note Delivery Note DATE OF DELIVERY: 05/14/21 PREDELIVERY DIAGNOSIS: 41+1/7 weeks' gestation and labor. POST DELIVERY DIAGNOSIS: Delivered. macrosomia. First degree perineal laceration. Right labial laceration. PROCEDURE: Spontaneous vaginal delivery OIL CHANGE TECHNICIAN: Dr. Marco Koehler DO ANESTHESIA: epidural ESTIMATED BLOOD LOSS: 100 mL. FINDINGS: 4080g infant, Score 8/9, nuchal cord times 0. DELIVERY SUMMARY: Ms. Gomez is a 20yo at 41+1 who was admitted for induction for late term. She progressed to C/C/+3 and with good maternal effort delivered the head followed by the body without difficulty. The torso of the baby was delivered by the father per patient request. The baby had spont aneous movement and cry. The cord clamping was delayed 60s then was cut by the father of the baby. Cord gasses and blood were obtained. The placenta delivered spontaneously and was in-tact. The lower uterine segment was cleared of clots. The uterus was firm. A first degree perineal laceration was repaired with 2-0 vicryl and a right labial laceration repaired with 3-0 vicryl rapid. The uterus remained firm and the bleeding scant. There were no complications. The sponge, lap, and needle counts were correct. MARCO KOEHLER DO May 14, 2021 23:42
[2021-05-14] MEDS: IBUPROFEN 800 MG TAB PO PRN (23:48)
--- NOTE | 2021-05-15 03:44 | IPNPDOC ---
Progress Note Date of Service: May 15, 2021 Day#: 1 Progress Note Ms. Gomez is a 20yo PPD1 s/p c/b 1MLL and right labial laceration who was admitted for induction for late term. 4080g infant, Score 8/9, EBL 100cc. She has been ambulating, voiding spontaneously without issue and tolerating regular diet. Breast feeding without issue. Reports lochia is less than a normal period]. Patient is ambulating well. [Reports some cramping with . Denies any pain. Voiding and passing flatus without difficulty]. APC Asthma Anxiety/depression bipolar disorder Mild anemia OBJECTIVE: VITAL SIGNS: Within normal limits, afebrile. Alert and oriented times three. No increased WOB Heart rate: non-tachycardic Abdomen: Fundus firm at U-2. Soft, NTTP. [Minimal] lochia per patient ASSESSMENT: Ms. Gomez is a 20yo PPD1 s/p c/b 1MLL and right labial laceration who was admitted for induction for late term. 4080g , Score 8/9, EBL 100cc. Vitals within normal limits, afebrile, hemodynamically stable with no evidence of infection. PLAN: 1. Discharge to home likely tomorrow. 2. Tylenol and Motrin for pain. 3. Encourage breast feeding and ambulation. 4. Plans on condoms for contraception, educated on risk of close interval 5. Routine PP visit in 2 and 6 weeks in clinic. 6. Discussed return precautions at length. VS, I&O, 24H, Chintane Vital Signs/I&O Vital Signs Date Time Temp Pulse Resp B/P (MAP) Pulse Ox O2 Delivery O2 Flow Rate FiO2 05/14/21 23:30 98.0 89 18 137/89 (105) 100 Room Air I&O- Last 24 Hours up to 6 AM 05/15/21 05:59 Intake Total 4897 ml Output Total 4350 ml Balance 547 ml Laboratory Data 24H LABS Laboratory Tests 2 05/14/21 21:20: Cord Arterial Blood pH 7.352, Cord Arterial Blood PCO2 31.3, Cord Arterial Blood PO2 190.1, Cord Arterial Blood HCO3 17.0, Cord Arterial Blood Total CO2 17.9, Cord Arterial Blood Base Excess -7.1, Cord Arterial Base Excess (Standard 18.9, Cord Arterial Bld Oxygen Saturation 99.7, Cord Venous Blood pH 7.340, Cord Venous Blood PCO2 42.2, Cord Venous Blood PO2 42.9, Cord Venous Blood HCO3 22.3, Cord Venous Blood Total CO2 23.6, Cord Venous Base Excess (Actual) -3.4, Cord Venous Base Excess (Standard) 21.4, Cord Venous Blood Oxygen Saturation 85.6 CHANTAL KOEHLER DO May 15, 2021 03:44
[2021-05-15 06:00] VITALS: BP 98/54
[2021-05-15] MEDS ORDERED: DIBUCAINE 1% OINTMENT 30GM TOP PRN (06:25)
[2021-05-15] MEDS: PRENATAL VITAMINS CHEWABLE TABLET PO SCH (08:52)
[2021-05-15] MEDS: IBUPROFEN 800 MG TAB PO PRN ×2 (08:53→16:23)
[2021-05-15] MEDS ORDERED: CYCLOBENZAPRINE 10MG TABLET PO ONE (14:35)
[2021-05-15 18:00] VITALS: BP 123/86
[2021-05-15] MEDS: PERCOCET 5MG/325MG TAB PO PRN (18:05)
[2021-05-16] MEDS: PERCOCET 5MG/325MG TAB PO PRN (02:32)
[2021-05-16 06:00] VITALS: BP 114/69
[2021-05-16] MEDS ORDERED: IBUP80TA PO (07:03)
[2021-05-16] MEDS ORDERED: ACET-683 PO (07:03)
--- NOTE | 2021-05-16 07:05 | DS.PDOC ---
Discharge Summary General Date of Admission May 13, 2021 at 22:09 Date of Discharge May 16, 2021 Discharge Summary HOSPITAL COURSE: Ms. Kruger is a 20 yo G1 now P1 who underwent an uncomplicated on 14May2021 after being admitted for an IOL for late term . Her course was unremarkable. On her day of discharge she met all appropriate discharge criteria. She was ambulating, voiding, tolerating a regular diet, and had minimal lochia. DISCHARGE MEDICATIONS: Please see below. ALLERGIES: Please see below. PHYSICAL EXAMINATION ON DISCHARGE: VITAL SIGNS: Please see below. GENERAL: AAOX3, NAD ABDOMINAL EXAMINATION: Fundus firm at U-2. No fundal tenderness EXTREMITIES: No edema PSYCHIATRIC EXAMINATION: Affect appropriate LABORATORY DATA: Please see below. ACTIVITY: Pelvic rest for 6 weeks DIET: Regular DISCHARGE PLAN: Discharge home or to boarder status DISPOSITION: Discharge home or to boarder status on 16May2021 DISCHARGE INSTRUCTIONS: 1. Nothing in the vagina for 6 weeks ITEMS TO FOLLOWUP ON ON OUTPATIENT: 1. Call to schedule a visit for 6 weeks post delivery DISCHARGE CONDITION: Stable. TIME SPENT ON DISCHARGE: Greater than 20 minutes. Yadiel Vinson DO Vital Signs/I&Os Vital Signs Date Time Temp Pulse Resp B/P (MAP) Pulse Ox O2 Delivery O2 Flow Rate FiO2 05/16/21 06:00 97.4 69 16 114/69 (84) 100 Room Air Discharge Medications Scheduled Doxylamine Succinate (Unisom Sleep Aid) 25 Mg Tablet, 1 TAB PO QPM, (Reported) No122/Iron/Folic Acid ( Multi Tablet) 1 Each Tablet, 1 TAB PO DAILY, (Reported) Scheduled PRN Acetaminophen (Acetaminophen) 500 Mg Tablet, 1,000 MG PO Q6HP PRN for PAIN LEVEL 6-10 Ibuprofen (Ibuprofen) 800 Mg Tablet, 800 MG PO Q8HP PRN for PAIN LEVEL 6-10 Allergies Coded Allergies: TAPE (Verified Allergy, Mild, rash, 04/16/21) YADIEL VINSON DO May 16, 2021 07:05
[2021-05-16] MEDS: PRENATAL VITAMINS CHEWABLE TABLET PO SCH (08:53)
[2021-05-16] MEDS: IBUPROFEN 800 MG TAB PO PRN (08:55)
== END 2021-05-16 12:15 | disposition home or self-care (01) | DRG 807 ==
LOC: M LDI 22:09 → M OBS 05-14 23:25
PROVIDERS: ADMIT Obstetrics & Gynecology; ATTEND Obstetrics & Gynecology
PROC: 3E0P7GC Introduction of Other Therapeutic Substance into Female Reproductive, Via Natural or Artificial Opening (ICD-10-PCS; 2021-05-13)
PROC: 10E0XZZ Delivery of Products of Conception, External Approach (ICD-10-PCS; principal; 2021-05-14)
PROC: 0HQ9XZZ Repair Perineum Skin, External Approach (ICD-10-PCS; 2021-05-14)
DX: O48.0 Post-term pregnancy (principal); Z37.0 Single live birth; Z3A.41 41 weeks gestation of pregnancy; O99.02 Anemia complicating childbirth; D64.9 Anemia, unspecified; O70.0 First degree perineal laceration during delivery

== ENCOUNTER → 2023-01-09 | Outpatient (CLI) | payer OTHER, SELFPAY ==
[~2023-01-09] MED LIST changes: +ACET-683 PO; +IBUP80TA PO; +IRON1TAB2 PO; +PROHANCE 279.3MG/ML 15ML VIAL ONE; +VITA100T59 PO
== END ==
LOC: M PLAIMG 07:54
PROVIDERS: ATTEND Family Medicine
DX: H93.19 Tinnitus, unspecified ear (principal); G93.89 Other specified disorders of brain
CPT/HCPCS: 70553; A9576